=== PATIENT | male | born 1985 | race Caucasian/White ===

== ENCOUNTER 2021-01-23 15:24 | Outpatient (CLI) | payer SELFPAY ==
--- NOTE | 2021-01-23 15:34 | XR_ITS ---
WS: [id number] RIBS LEFT TECHNIQUE: 3 views left ribs CLINICAL INFORMATION: RIB PAIN, LEFT SIDED COMPARISON: None. FINDINGS: Normal visualized left ribs. No fractures. Left lung is well aerated. XR/XR ribs LT 2V* [id number] IMPRESSION: No visualized left rib fractures
== END 2021-01-23 15:25 | disposition home or self-care (01) ==
LOC: RADWPI 15:30
PROVIDERS: PCP Family Medicine; Visit Provider Nurse Practitioner Family
DX: R07.81 Pleurodynia (principal)
CPT/HCPCS: 71100

== ENCOUNTER 2022-12-17 14:52 | Outpatient (CLI) | payer BC, MEDICAID, SELFPAY ==
--- NOTE | 2022-12-17 15:00 | USCV_ITS ---
Juvencio Fitzgerald Age: 37 Gender: M : 1985 Exam Date: 12/17/2022 15:19 Ordering Phys: Shiv Gilliland M.D ([email or web address]) Technologist: Lazaro Beauchamp Exam Location: [facility] [place] Indication: sob, chest pain BP: 124 / 89 HR: 64 Rhythm: Sinus Technical Quality: Adequate MEASUREMENTS (Male / Female) Normal Values 2D ECHO LV Diastolic Diameter PLAX 5.6 cm 4.2 - 5.9 / 3.9 - 5.3 cm LV Systolic Diameter PLAX 3.5 cm IVS Diastolic Thickness 0.7 cm 0.6 - 1.0 / 0.6 - 0.9 cm IVS Systolic Thickness 1.1 cm LVPW Diastolic Thickness 0.9 cm 0.6 - 1.0 / 0.6 - 0.9 cm LVPW Systolic Thickness 1.5 cm LVOT Diameter 2.1 cm LV Ejection Fraction 2D Teich 67.9 % LV Ejection Fraction MOD 2C 63.5 % LV Ejection Fraction 2C AL 64.0 % LA Diameter 3.8 cm LA Width 3.4 cm LA Height 4.6 cm RA Width 4.0 cm RA Height 5.5 cm Aorta at Sinotubular Diameter 2.4 cm IVC Diameter 2.0 cm M-MODE Aortic Annulus Diameter 3.5 cm LA Ao Ratio MM 1.1 MV E Point Septal Separation 0.6 cm DOPPLER AV Peak Velocity 111.0 cm/s LVOT Peak Velocity 87.0 cm/s AV Area Cont Eq vti 2.6 cm squared AV Area Cont Eq pk 2.8 cm squared MV Peak Velocity 78.0 cm/s MV Area PHT 7.9 cm squared Mitral E to A Ratio 1.6 MV E' Velocity 40.0 cm/s Mitral E to MV E' Ratio 5.1 Mitral E to LV E' Lateral Ratio 4.8 Mitral E to LV E' Septal Ratio 5.5 TR Peak Velocity 177.3 cm/s TR Peak Gradient 12.6 mmHg TR Mean Velocity 146.8 cm/s TR Mean Gradient 9.2 mmHg TR Velocity Time Integral 41.1 cm Right Atrial Pressure 3.0 mmHg Pulmonary Artery Systolic Pressu 15.6 mmHg PV Peak Velocity 105.7 cm/s RV Acceleration Time 0.2 s RV Ejection Time 0.3 s RV AcT/ET 0.5 FINDINGS Left Ventricle Left ventricle is normal in size. LV systolic function is normal with EF of 55 to 60%. No regional wall motion abnormalities are seen. Right Ventricle Normal in size and function Right Atrium Normal in size Left Atrium Normal in size Mitral Valve Structurally normal mitral valve. Trace mitral regurgitation. Aortic Valve Structurally normal aortic valve. No significant stenosis or regurgitation seen. Tricuspid Valve Mild tricuspid regurgitation. Insufficient TR jet to calculate RVSP. Pulmonic Valve Not well-visualized. Trace pulmonic regurgitation Pericardium Normal Aorta Normal in size IVC Appears to be normal CONCLUSIONS Function is normal with EF 55 to 60%. Trace mitral regurgitation Mild tricuspid regurgitation Trace pulmonic regurgitation No comparison studies are available Shiv Gilliland MD (Electronically Signed) Final Date: 26 December 2022 19:20 S
== END 2022-12-17 14:53 | disposition home or self-care (01) ==
PROVIDERS: PCP Family Medicine; Visit Provider Internal Medicine
DX: R06.02 Shortness of breath (principal); R07.9 Chest pain, unspecified; I08.1 Rheumatic disorders of both mitral and tricuspid valves
CPT/HCPCS: 93306